=== PATIENT | male | born 1935 | race Caucasian/White ===

== ENCOUNTER 2019-06-16 10:54 | Emergency (ER) | payer OTHER, MEDICARE ==
[2019-06-16 11:31] LABS: Absolute Lymphocytes (CBC) 1.6 K/uL (0.7-4.9); Basophils % 0.4 % (0-1.3); Lymphocytes % 26.3 % (15.3-44.8); MPV 6.4 fL (7.6-11.3); RBC Red Blood Cell Count 4.27 M/uL (4.33-5.43)
[2019-06-16 11:43] LABS: Protime INR 1.16
[2019-06-16 11:50] LABS: ALT/SGPT 15 U/L (12-78); AST/SGOT 18 U/L (15-37); Albumin 3.3 g/dL (3.4-5.0); Alkaline Phosphatase 75 U/L (45-117); BUN Blood Urea Nitrogen 16 mg/dL (7-18); Bicarbonate 26 mmol/L (21-32); Bilirubin Direct 0.1 mg/dL (0-0.2); Bilirubin Total 0.7 mg/dL (0.2-1.0); Glucose Level 116 mg/dL (74-106); NT PRO-BNP 458 pg/mL (<450); Protein, Total 7.2 g/dL (6.4-8.2); Sodium Level 141 mmol/L (136-145); Troponin (Emerg Dept Use Only) < 0.02 ng/mL (0.0-0.045)
[2019-06-16] MEDS ORDERED: ASPIRIN 81 MG CHEWABLE TABLET ONE (12:04)
--- NOTE | 2019-06-16 12:07 | RAD REPORT ---
EXAM DESCRIPTION: Yulia Single View06/16/2019 11:56 am CLINICAL HISTORY: Numbness COMPARISON: None FINDINGS: The lungs appear clear of acute infiltrate. The heart is normal size. Pacemaker leads are in place. IMPRESSION: No acute abnormalities displayed
--- NOTE | 2019-06-16 12:14 | RAD REPORT ---
EXAM DESCRIPTION: CT - Head Brain Wo Cont - 06/16/2019 11:41 am CLINICAL HISTORY: Numbness COMPARISON: None TECHNIQUE: Computed axial tomography of the head was obtained. IV contrast was not requested. All CT scans are performed using dose optimization technique as appropriate and may include automated exposure control or mA/KV adjustment according to patient size. FINDINGS: An intracranial bleed is not seen . The ventricles are normal in caliber. No extra-axial fluid collection is noted. 6 millimeter low-density areas present within the anterior limb of the right internal capsule Fluid within the sinuses/ mastoids is not seen. IMPRESSION: A 6 millimeter low-density area within the anterior limb of the right internal capsule l ikely lacunar infarction. Age is indeterminate. If clinically indicated further evaluation with MRI c ould be obtained
--- NOTE | 2019-06-16 13:02 | ER ---
Nurse's Notes [facility] Name: Prince Coppola Age: 84 yrs Sex: Male : 1935 Arrival Date: 06/16/2019 Time: 10:55 Bed 16 Private MD: Diagnosis: Cerebral infarction;Other lacunar syndromes Presentation: 06/15 11:02 Chief complaint: Patient's son or daughter states: He had a teleconference with Dr. maria a Medina and the doctor said he has possible stroke. He c/o of drooping on L side of face and numbness of L side of the body about 1.5hrs ago. Pt A\T\Ox4. No arm drift. Face appears normal. Symptoms resolved. Coronavirus screen: Patient denies fever greater than 100.4F, cough, shortness of breath, or difficulty breathing. Proceed with normal triage process. Ebola Screen: Patient negative for fever greater than or equal to 101.5 degrees Fahrenheit, and additional compatible Ebola Virus Disease symptoms Patient denies exposure to infectious person. Patient denies travel to an Ebola-affected area in the 21 days before illness onset. No symptoms or risks identified at this time. Initial Sepsis Screen: Does the patient meet any 2 criteria? No. Patient's initial sepsis screen is negative. Does the patient have a suspected source of infection? No. Patient's initial sepsis screen is negative. Risk Assessment: Do you want to hurt yourself or someone else? Patient reports no desire to harm self or others. Onset of symptoms was June 16, 2019 at 09:30. 11:02 Acuity: ROCCO 3 ca1 11:02 Method Of Arrival: Wheelchair ca1 13:37 No acute neurological deficit is noted. The patients blood glucose was checked before bp arriving to the hospital and was found to be normal. Triage Assessment: 11:05 The onset of the patients symptoms was June 16, 2019 at 10:00. General: Appears in no bp apparent distress. comfortable, Behavior is calm, cooperative, appropriate for age. Pain: Denies pain. EENT: No deficits noted. Neuro: Reports weakness. Cardiovascular: No deficits noted. Respiratory: No deficits noted. GI: No signs and/or symptoms were reported involving the gastrointestinal system. : No signs and/or symptoms were reported regarding the genitourinary system. Derm: No signs and/or symptoms reported regarding the dermatologic system. Musculoskeletal: No deficits noted. Stroke Activation: Physician: Stroke Attending; Name: ; Notified At: ; Arrived At: Physician: Chief Stroke Resident; Name: ; Notified At: ; Arrived At: Physician: Stroke Resident; Name: ; Notified At: ; Arrived At: Physician: ED Attending; Name: ; Notified At: ; Arrived At: Physician: ED Resident; Name: ; Notified At: ; Arrived At: 13:37 N/A bp Historical: - Allergies: : No Known Allergies; ca1 - Home Meds: : Tramadol Oral [Active]; propranolol Oral [Active]; ca1 - PMHx: : Hypertension; ca1 - PSHx: 11: None; ca1 - Immunization history:: Adult Immunizations not up to date, Pneumococcal vaccine is not up to date, Flu vaccine is not up to date. - Social history:: Smoking status: Patient denies any tobacco usage or history of. Screenin:07 VAN Screening: Arm Drift: Patient shows no arm weakness. Patient is VAN negative. ca1 11:10 Abuse screen: Denies threats or abuse. Denies injuries from another. Nutritional bp screening: No deficits noted. Tuberculosis screening: No symptoms or risk factors identified. Fall Risk None identified. Assessment: 11:02 VAN Scoring: Arm Drift: Patients demonstrates NO arm weakness. Patient is VAN Negative. bp The patient has not been NPO before screening. The patient is alert, and able to follow commands. The patient does not exhibit slurred or garbled speech. The patient is not exhibiting difficulty speaking. The patient does not exhibit difficulty understanding words. The patient is able to swallow own secretions with no drooling or need for suction. Patient tolerated one teaspoon of water. No drooling, immediate coughing, gurgling, or clearing of the throat was noted. The patient tolerated 90mL of water. No drooling, immediate coughing, gurgling, or clearing of the throat was noted. The patient passed the bedside swallow screening. Oral medications may be given as ordered. Contact Physician for further diet orders. Provider notified of bedside swallow screening results: Estefania MATTA T-PA (Activase) Screening: Contraindications: Rapidly improving condition or minor deficit: Yes. General: SEE TRIAGE NOTE. 12:00 Reassessment:. Neuro: Level of Consciousness is awake, alert, obeys commands, Oriented bp to person, place, time, situation, Appropriate for age Moves all extremities. Full function Speech is normal, Pupils are PERRLA. 12:47 Reassessment: MRI PENDING. NIH SS REMAINS 0. bp 12:58 Reassessment: MRI CANCELLED, PT HAS DEFIBRILLATOR. bp 13:39 Reassessment: PT REFUSING ADMIT. PT TO BE D/C. bp 14:09 Reassessment: PT D/C HOME VIA W/C WITH FAMILY, DX WITH LACUNAR INFARCT. bp Vital Signs: 11:02 BP 157 / 87; Pulse 72; Resp 17 S; Temp 98.4(O); Pulse Ox 98% on R/A; Weight 84.82 kg ca1 (R); Height 6 ft. (182.88 cm) (R); Pain 0/10; 12:42 BP 128 / 82; Pulse 63; Resp 16; Pulse Ox 93% ; bp 13:39 BP 165 / 89; Pulse 60; Resp 17; Temp 98; Pulse Ox 97% ; bp 14:09 BP 126 / 85; Pulse 87; Resp 16; Temp 98; Pulse Ox 96% ; bp 11:02 Body Mass Index 25.36 (84.82 kg, 182.88 cm) ca1 NIH Stroke Scale Scores: 11:02 NIHSS Score: 0 bp 11:20 NIHSS Score: 1 snw ED Course: 10:55 Patient arrived in ED. ag5 10:58 John Clark, RN is Primary Nurse. bp 11:05 Triage completed. ca1 11:06 Estefania Govea FNP-C is PHCP. snw 11:06 Sameer Pollock MD is Attending Physician. snw 11:07 Arm band placed on right wrist. ca1 11:10 Patient has correct armband on for positive identification. Bed in low position. Call bp light in reach. Side rails up X2. 11:31 Initial lab(s) drawn, by me, sent to lab. Inserted saline lock: 20 gauge in left em1 forearm, using aseptic technique. Blood collected. 11:42 CT Head Brain wo Cont In Process Unspecified. EDMS 11:47 EKG done, by ED staff, reviewed by Estefania WHITTEN. em1 12:06 XRAY Chest (1 view) In Process Unspecified. EDMS 12:58 Moe Medina MD is Hospitalizing Provider. snw 13:38 No provider procedures requiring assistance completed. IV discontinued, intact, bp bleeding controlled, No redness/swelling at site. Pressure dressing applied. 13:45 Primo Dooley MD is Referral Physician. snw 13:[address] medina and dr dooley that pt does not want to be admitted. bd Administered Medications: 11:50 Drug: Aspirin Chewable Tablet 324 mg Route: PO; bp 13:41 Follow up: Response: No adverse reaction bp 12:45 Drug: foLIC Acid 1 mg Route: IVPB; Site: left forearm; bp 13:41 Follow up: IV Status: Completed infusion; IV Intake: 100ml bp Intake: 13:41 IV: 100ml; Total: 100ml. bp Outcome: 12:59 Decision to Hospitalize by Provider. snw 13:40 Discharge ordered by MD. snw 14:09 Discharged to home via wheelchair. bp 14:09 Condition: stable 14:09 Discharge instructions given to patient, Instructed on discharge instructions, follow up and referral plans. medication usage, Demonstrated understanding of instructions, follow-up care, medications, Prescriptions given X 3. 14:11 Patient left the ED. bp NIH Stroke Scale - NIH Stroke Score Date: 06/16/2019 Time: 11:02 Total Score = 0 1a. Level of Consciousness (LOC) - 0(Alert) 1b. Level of Consciousness (LOC) (Year \T\ Age) - 0(Both) 1c. LOC Commands (Open \T\ Closes Eyes/Operation Manager) - 0(Both) 2. Best Gaze (Lateral Gaze Paresis) - 0(Normal) 3. Visual Field Loss - 0(No visual loss) 4. Facial Palsy - 0(Normal) 5a. Left Arm: Motor (10-second hold) - 0(No drift) 5b. Right Arm: Motor (10-second hold) - 0(No drift) 6a. Left Leg: Motor (5-second hold - always test supine) - 0(No drift) 6b. Right Leg: Motor (5-second hold - always test supine) - 0(No drift) 7. Limb Ataxia (finger/nose \T\ heel/garcia - test with eyes open) - 0(Absent) 8. Sensory Loss (pinprick arms/legs/face) - 0(Normal) 9. Best Language: Aphasia (description/naming/reading) - 0(No aphasia) 10. Dysarthria (speech clarity - read or repeat words) - 0(Normal) 11. Extinction and Inattention (visual/tactile/auditory/spatial/personal) - 0(No abnormality) Initials: bp NIH Stroke Scale - NIH Stroke Score Date: 06/16/2019 Time: 11:20 Total Score = 1 1a. Level of Consciousness (LOC) - 0(Alert) 1b. Level of Consciousness (LOC) (Year \T\ Age) - 0(Both) 1c. LOC Commands (Open \T\ Closes Eyes/Operation Manager) - 0(Both) 2. Best Gaze (Lateral Gaze Paresis) - 0(Normal) 3. Visual Field Loss - 0(No visual loss) 4. Facial Palsy - 0(Normal) 5a. Left Arm: Motor (10-second hold) - 0(No drift) 5b. Right Arm: Motor (10-second hold) - 0(No drift) 6a. Left Leg: Motor (5-second hold - always test supine) - 0(No drift) 6b. Right Leg: Motor (5-second hold - always test supine) - 0(No drift) 7. Limb Ataxia (finger/nose \T\ heel/garcia - test with eyes open) - 0(Absent) 8. Sensory Loss (pinprick arms/legs/face) - 1(Mild to moderate loss) 9. Best Language: Aphasia (description/naming/reading) - 0(No aphasia) 10. Dysarthria (speech clarity - read or repeat words) - 0(Normal) 11. Extinction and Inattention (visual/tactile/auditory/spatial/personal) - 0(No abnormality) Initials: snw Signatures: Dispatcher [employer] Lisa Christiansen Shelly, TALENT MANAGEMENT MANAGER-C TALENT MANAGEMENT MANAGER-Sandro Hurd em1 John Clark RN RN bp Acob, Cheryl, RN RN ca1 Gaskin, Ajare ag5 Corrections: (The following items were deleted from the chart) 12:45 12:42 Pulse 63bpm; Resp 16bpm; Pulse Ox 93%; bp bp
--- NOTE | 2019-06-16 13:02 | EDPHYS ---
Physician Documentation [facility] Name: Prince Coppola Age: 84 yrs Sex: Male : 1935 Arrival Date: 06/16/2019 Time: 10:55 Bed 16 Private MD: ED Physician Sameer Pollock HPI: 06/15 11:23 This 84 yrs old Male presents to ER via Wheelchair with complaints of S/S of snw Possible Stroke. 11:23 The patient's problem is reported as numbness. Onset: The symptoms/episode snw began/occurred suddenly, noted upon awakening, pt states the numbness remains slightly but is better.. Duration: This was a single incident. Associated signs and symptoms: The patient has no apparent associated signs or symptoms. Severity of symptoms: At their worst the symptoms were mild. Patient's baseline: Neuro: alert and fully oriented, Motor: no deficits, Ambulation: walks without assistance, Speech: normal, The patient has a previous history of taking tramadol and propranolol. The patient has been recently seen by a physician: the patient's primary care provider, Dr. Medina earlier today, with similar presenting complaints, and was sent to the [facility] Emergency Department for further evaluation. Historical: - Allergies: 11:07 No Known Allergies; ca1 - Home Meds: 11:07 Tramadol Oral [Active]; propranolol Oral [Active]; ca1 - PMHx: 11:07 Hypertension; ca1 - PSHx: 11:07 None; ca1 - Immunization history:: Adult Immunizations not up to date, Pneumococcal vaccine is not up to date, Flu vaccine is not up to date. - Social history:: Smoking status: Patient denies any tobacco usage or history of. ROS: 11:22 Constitutional: Negative for fever, chills, and weight loss, Eyes: Negative for injury, snw pain, redness, and discharge, ENT: Negative for injury, pain, and discharge, Neck: Negative for injury, pain, and swelling, Cardiovascular: Negative for chest pain, palpitations, and edema, Respiratory: Negative for shortness of breath, cough, wheezing, and pleuritic chest pain, Abdomen/GI: Negative for abdominal pain, nausea, vomiting, diarrhea, and constipation, Back: Negative for injury and pain, : Negative for injury, bleeding, discharge, and swelling, MS/Extremity: Negative for injury and deformity, Skin: Negative for injury, rash, and discoloration, Psych: Negative for depression, anxiety, suicide ideation, homicidal ideation, and hallucinations. 11:22 Neuro: Positive for numbness. Exam: 11:20 Constitutional: This is a well developed, well nourished patient who is awake, alert, snw and in no acute distress. Head/Face: Normocephalic, atraumatic. Eyes: Pupils equal round and reactive to light, extra-ocular motions intact. Lids and lashes normal. Conjunctiva and sclera are non-icteric and not injected. Cornea within normal limits. Periorbital areas with no swelling, redness, or edema. ENT: Nares patent. No nasal discharge, no septal abnormalities noted. Tympanic membranes are normal and external auditory canals are clear. Oropharynx with no redness, swelling, or masses, exudates, or evidence of obstruction, uvula midline. Mucous membranes moist. Neck: Trachea midline, no thyromegaly or masses palpated, and no cervical lymphadenopathy. Supple, full range of motion without nuchal rigidity, or vertebral point tenderness. No Meningismus. Chest/axilla: Normal chest wall appearance and motion. Nontender with no deformity. No lesions are appreciated. Cardiovascular: Regular rate and rhythm with a normal S1 and S2. No gallops, murmurs, or rubs. Normal PMI, no JVD. No pulse deficits. Respiratory: Lungs have equal breath sounds bilaterally, clear to auscultation and percussion. No rales, rhonchi or wheezes noted. No increased work of breathing, no retractions or nasal flaring. Abdomen/GI: Soft, non-tender, with normal bowel sounds. No distension or tympany. No guarding or rebound. No evidence of tenderness throughout. Back: No spinal tenderness. No costovertebral tenderness. Full range of motion. Skin: Warm, dry with normal turgor. Normal color with no rashes, no lesions, and no evidence of cellulitis. MS/ Extremity: Pulses equal, no cyanosis. Neurovascular intact. Full, normal range of motion. Psych: Awake, alert, with orientation to person, place and time. Behavior, mood, and affect are within normal limits. 11:20 Neuro: Motor: is normal, Sensation: numbness, that is mild, of the left side of forehead, left eye, left muslim, left side of the nose, left zygomatic area, left cheek and left mandible and left arm. 13:00 Radiologist reports: Lacunar infarct snw Vital Signs: 11:02 BP 157 / 87; Pulse 72; Resp 17 S; Temp 98.4(O); Pulse Ox 98% on R/A; Weight 84.82 kg ca1 (R); Height 6 ft. (182.88 cm) (R); Pain 0/10; 12:42 BP 128 / 82; Pulse 63; Resp 16; Pulse Ox 93% ; bp 13:39 BP 165 / 89; Pulse 60; Resp 17; Temp 98; Pulse Ox 97% ; bp 14:09 BP 126 / 85; Pulse 87; Resp 16; Temp 98; Pulse Ox 96% ; bp 11:02 Body Mass Index 25.36 (84.82 kg, 182.88 cm) ca1 NIH Stroke Scale Scores: 11:02 NIHSS Score: 0 bp 11:20 NIHSS Score: 1 snw MDM: 11:14 Data reviewed: vital signs, nurses notes. Data interpreted: Pulse oximetry: on room air snw is 98 %. Interpretation: normal. Counseling: I had a detailed discussion with the patient and/or guardian regarding: the historical points, exam findings, and any diagnostic results supporting the discharge/admit diagnosis, the presence of at least one elevated blood pressure reading (>120/80) during this emergency department visit, lab results, radiology results, the need for further work-up and treatment in the hospital. Physician consultation: Moe Medina MD was called at 11:16, pt seen by Dr. Medina on teleconference, sent to ED for stroke eval.. 11:30 Patient medically screened. snw 12:37 Counseling: I had a detailed discussion with the patient and/or guardian regarding: the snw historical points, exam findings, and any diagnostic results supporting the discharge/admit diagnosis. Physician consultation: Primo Ramirez MD was called at 12:38, was contacted at 12:38, regarding consult, patient's condition, would like further tests performed, Lipid panel, would like medications started, ASA, folic acid, statin. 12:58 ED course: MRI cancelled as pt has a defibrillator. snw 13:00 ED course: Pt not in window for thrombolytics as he awoke with s/s, presented to ED at snw 1100, unknown onset. 13:39 Refusal of service: The patient/guardian displays adequate decision making capability sn and despite a detailed discussion of alternatives, benefits, risks, and consequences refuses: Admission to the hospital for further work-up and treatment, Pt refuses admission. 06/15 11:13 Order name: Basic Metabolic Panel; Complete Time: 11:54 [facility] 06/15 11:13 Order name: CBC with Diff w 06/15 11:13 Order name: LFT's; Complete Time: 11:54 [facility] 06/15 11:13 Order name: Magnesium; Complete Time: :54 [facility] 06/15 11:13 Order name: NT PRO-BNP; Complete Time: : 06/15 11:13 Order name: PT-INR; Complete Time: 11:54 [facility] 06/15 11:13 Order name: CT Head Brain wo Cont; Complete Time: 12:35 [facility] 06/15 11:13 Order name: Troponin (emerg Dept Use Only); Complete Time: 11:54 06/15 11:13 Order name: XRAY Chest (1 view); Complete Time: 12:35 [facility] 06/15 12:37 Order name: Lipid Profile [facility] 06/15 13:16 Order name: Lipid Profile [facility] 06/15 11:13 Order name: FSBS; Complete Time: 11:49 06/15 11:13 Order name: EKG; Complete Time: 11:15 [facility] 06/15 11:13 Order name: Cardiac monitoring; Complete Time: 11:47 [facility] 06/15 11:13 Order name: EKG - Nurse/Tech; Complete Time: 11:47 [facility] 06/15 11:13 Order name: IV Saline Lock; Complete Time: 11: [facility] 06/15 11:13 Order name: Labs collected and sent; Complete Time: : 06/15 11:13 Order name: O2 Per Protocol; Complete Time: 11:49 06/15 11:13 Order name: O2 Sat Monitoring; Complete Time: 11:49 [facility] 06/15 14:04 Order name: CONS Physician Consult [facility] Administered Medications: 11:50 Drug: Aspirin Chewable Tablet 324 mg Route: PO; bp 13:41 Follow up: Response: No adverse reaction bp 12:45 Drug: foLIC Acid 1 mg Route: IVPB; Site: left forearm; bp 13:41 Follow up: IV Status: Completed infusion; IV Intake: 100ml bp Disposition: 14:38 Co-signature as Attending Physician, Sameer Pollock MD. rn Disposition: 06/16/19 13:40 Discharged to Home. Impression: Cerebral infarction, Other lacunar syndromes. - Condition is Stable. - Discharge Instructions: Stroke Prevention, Ischemic Stroke Treated Without Warfarin, [id number]. - Prescriptions for Aspirin Low- Strength - take 81 milligram by ORAL route once daily; 1 bottle. Folic Acid 1 mg Oral Tablet - take 1 tablet by ORAL route once daily; 30 tablet. Lipitor 10 mg Oral Tablet - take 1 tablet by ORAL route once daily; 30 tablet. - Medication Reconciliation Form, Thank You Letter, Antibiotic Education, Prescription Opioid Use form. - Follow up: Emergency Department; When: As needed; Reason: Worsening of condition. Follow up: Private Physician; When: 2 - 3 days; Reason: Recheck today's complaints, Continuance of care, Re-evaluation by your physician. Follow up: Primo Ramirez MD; When: 2 - 3 days; Reason: Recheck today's complaints, Continuance of care. NIH Stroke Scale - NIH Stroke Score Date: 06/16/2019 Time: 11:02 Total Score = 0 1a. Level of Consciousness (LOC) - 0(Alert) 1b. Level of Consciousness (LOC) (Year \T\ Age) - 0(Both) 1c. LOC Commands (Open \T\ Closes Eyes/Intensive Care Anaesthetist) - 0(Both) 2. Best Gaze (Lateral Gaze Paresis) - 0(Normal) 3. Visual Field Loss - 0(No visual loss) 4. Facial Palsy - 0(Normal) 5a. Left Arm: Motor (10-second hold) - 0(No drift) 5b. Right Arm: Motor (10-second hold) - 0(No drift) 6a. Left Leg: Motor (5-second hold - always test supine) - 0(No drift) 6b. Right Leg: Motor (5-second hold - always test supine) - 0(No drift) 7. Limb Ataxia (finger/nose \T\ heel/garcia - test with eyes open) - 0(Absent) 8. Sensory Loss (pinprick arms/legs/face) - 0(Normal) 9. Best Language: Aphasia (description/naming/reading) - 0(No aphasia) 10. Dysarthria (speech clarity - read or repeat words) - 0(Normal) 11. Extinction and Inattention (visual/tactile/auditory/spatial/personal) - 0(No abnormality) Initials: bp NIH Stroke Scale - NIH Stroke Score Date: 06/16/2019 Time: 11:20 Total Score = 1 1a. Level of Consciousness (LOC) - 0(Alert) 1b. Level of Consciousness (LOC) (Year \T\ Age) - 0(Both) 1c. LOC Commands (Open \T\ Closes Eyes/Intensive Care Anaesthetist) - 0(Both) 2. Best Gaze (Lateral Gaze Paresis) - 0(Normal) 3. Visual Field Loss - 0(No visual loss) 4. Facial Palsy - 0(Normal) 5a. Left Arm: Motor (10-second hold) - 0(No drift) 5b. Right Arm: Motor (10-second hold) - 0(No drift) 6a. Left Leg: Motor (5-second hold - always test supine) - 0(No drift) 6b. Right Leg: Motor (5-second hold - always test supine) - 0(No drift) 7. Limb Ataxia (finger/nose \T\ heel/garcia - test with eyes open) - 0(Absent) 8. Sensory Loss (pinprick arms/legs/face) - 1(Mild to moderate loss) 9. Best Language: Aphasia (description/naming/reading) - 0(No aphasia) 10. Dysarthria (speech clarity - read or repeat words) - 0(Normal) 11. Extinction and Inattention (visual/tactile/auditory/spatial/personal) - 0(No abnormality) Initials: snw Signatures: Dispatcher [employer] Tia Genao RN RN Estefania Olson, FILTER TIP CATCHER-C FILTER TIP CATCHER-Csnw Sameer Pollock MD MD rn Peltier, Brian, RN RN bp AcobYanira RN RN ca1 Corrections: (The following items were deleted from the chart) 13:28 12:59 Hospitalization Ordered by Moe Medina MD for Observation. Preliminary dw diagnosis is Other lacunar syndromes. Bed requested for Telemetry/MedSurg (observation). Status is Observation. Condition is Stable. Problem is new. Symptoms are unchanged. snw 13:39 13:28 06/16/2019 12:59 Hospitalization Ordered by Moe Medina MD for snw Observation. Preliminary diagnosis is Other lacunar syndromes. Bed requested for Telemetry/MedSurg (observation). Status is Observation. Condition is Stable. Problem is new. Symptoms are unchanged. dw 13:45 13:40 06/16/2019 13:40 Discharged to Home. Impression: Cerebral infarction; snw Other lacunar syndromes. Condition is Stable. Forms are Medication Reconciliation Form, Thank You Letter, Antibiotic Education, Prescription Opioid Use. Follow up: Emergency Department; When: As needed; Reason: Worsening of condition. Follow up: Private Physician; When: 2 - 3 days; Reason: Recheck today's complaints, Continuance of care, Re-evaluation by your physician. snw 14:11 13:45 06/16/2019 13:40 Discharged to Home. Impression: Cerebral infarction; bp Other lacunar syndromes. Condition is Stable. Discharge Instructions: Stroke Prevention, Ischemic Stroke Treated Without Warfarin, [id number]. Prescriptions for Aspirin Low-Strength - take 81 milligram by ORAL route once daily; 1 bottle, Folic Acid 1 mg Oral Tablet - take 1 tablet by ORAL route once daily; 30 tablet, Lipitor 10 mg Oral Tablet - take 1 tablet by ORAL route once daily; 30 tablet. and Forms are Medication Reconciliation Form, Thank You Letter, Antibiotic Education, Prescription Opioid Use. Follow up: Emergency Department; When: As needed; Reason: Worsening of condition. Follow up: Private Physician; When: 2 - 3 days; Reason: Recheck today's complaints, Continuance of care, Re-evaluation by your physician. Follow up: Primo Ramirez; When: 2 - 3 days; Reason: Recheck today's complaints, Continuance of care. snw
[2019-06-16] MEDS ORDERED: NA CHLORIDE 0.9% 100 ML IV ONE (13:20)
[2019-06-16] MEDS ORDERED: FOLIC ACID 5 MG/ML VIAL ONE (13:21)
[2019-06-16 14:23] VITALS: TEMP 98
[2019-06-16 14:24] VITALS: BP 126/85; O2SAT 96
--- NOTE | 2019-06-16 20:43 | P.SSS ---
Patient History Date of Service: 06/16/19 Reason for admission: STROKE History of Present Illness: I SAW HIM ON TELEMEDICINE TODAY. I SUSPECTED HE WAS HAVING STROKE ON L SIDE OF FACE AND ARM WITH PARESTHESIA. INITIALLY HE DID NOT WANT TO GOT [facility]. AFTER DAUGHTER CONVINCED HE CAME. HE HAS A FIB FOR LONG DURATION. HE DOES NOT WANT ANTICOAGULATION. HE HAS LACUNAR BASAL GANGLIA INFARCT. HE DID NOT WANT TO STAY IN HOSPITAL AND LEFT HOME FROM ER ITSELF. I TALKED TO DAUGHTER AND MADE SURE HE WILL AT LEAST TAKE ASPRIN 81 MG DAILY. Physical Examination - Vital Signs Temperature: 98 F Blood Pressure: 126/85 Pulse: 87 Respirations: 16 - Studies Laboratory Data (last 24 hrs) 06/16/19 11:27: Triglycerides 164 H, Cholesterol 214 H, HDL Cholesterol 38 L, Cholesterol/HDL Ratio 5.63 06/16/19 11:27: PT 13.6 H, INR 1.16 06/16/19 11:27: WBC 6.1, Hgb 13.7, Hct 40.0, Plt Count 205 06/16/19 11:27: Sodium 141, Potassium 4.0, BUN 16, Creatinine 0.90, Glucose 116 H, Magnesium 2.0, Total Bilirubin 0.7, AST 18, ALT 15, Alkaline Phosphatase 75 - Disposition Disposition: ROUTINE DISCHARGE
--- NOTE | 2019-06-17 10:05 | EKG ---
Test Date: 2019-06-16 Test Time: 11:44:40 Wind Technician: BELEM MEASUREMENT RESULTS: Intervals: Rate: 66 [place]: 196 QRSD: 124 QT: 400 QTc: 419 [place]: P: 52 [place]: 196 QRS: -69 T: 77 INTERPRETIVE STATEMENTS: Normal sinus rhythm Left axis deviation RSR' or QR pattern in V1 suggests right ventricular conduction delay Anteroseptal infarct, age undetermined Abnormal ECG No previous ECG available for comparison Electronically Signed On 06-17-19 10:03:01 CDT by Eliezer Pugh
== END 2019-06-16 14:11 | disposition home or self-care (01) ==
LOC: ER 10:54 → ERHOLD 13:07 → UNDOADMIN 13:07
DX: I63.9 Cerebral infarction, unspecified (principal); I10 Essential (primary) hypertension; R29.701 NIHSS score 1; G46.7 Other lacunar syndromes; I48.91 Unspecified atrial fibrillation
CPT/HCPCS: 36415; 70450; 71045; 80048; 80061; 80076; 83735; 83880; 84484; 85025; 85610; 93005; 96365; 99284

== ENCOUNTER 2021-05-24 12:04 | Day surgery (SDC) | payer OTHER, MEDICARE ==
--- NOTE | 2021-05-22 08:48 | RAD REPORT ---
EXAM DESCRIPTION: RAD - Chest Pa And Lat (2 Views) - 05/22/2021 8:43 am CLINICAL HISTORY: pre op pending heart cath COMPARISON: Thoracic Spine W/o Cont dated 2Chest Single View dated 06/16/2019 FINDINGS: Lines: Pacemaker/defibrillator. Lungs: No evidence of edema or pneumonia. Pleural: No significant pleural effusions or pneumothorax. Cardiac: The heart size is within normal limits. Bones: No acute fractures. Other: IMPRESSION: No acute cardiopulmonary disease.
--- NOTE | 2021-05-22 09:09 | EKG ---
Test Date: 2021-05-22 Test Time: 08:24:53 Co Op: DASIA MEASUREMENT RESULTS: Intervals: Rate: 62 [place]: 202 QRSD: 128 QT: 398 QTc: 403 [place]: P: 65 [place]: 202 QRS: -65 T: 174 INTERPRETIVE STATEMENTS: Normal sinus rhythm Left axis deviation Nonspecific intraventricular block Septal infarct, age undetermined T wave abnormality, consider anterolateral ischemia Abnormal ECG Compared to ECG 06/16/2019 11:44:40 T-wave abnormality now present Possible ischemia now present Myocardial infarct finding still present Electronically Signed On 05-22-21 09:08:54 HAND SILVERING SUPERVISOR by Eliezer Pugh
[2021-05-22 09:16] LABS: Absolute Lymphocytes (CBC) 1.8 K/uL (0.7-4.9); Hematocrit 37.1 % (39.6-49.0); Lymphocytes % 29.5 % (15.3-44.8); MPV 6.5 fL (7.6-11.3); RBC Red Blood Cell Count 3.95 M/uL (4.33-5.43)
[2021-05-22 09:21] LABS: Protime INR 1.51
[2021-05-22 09:43] LABS: Potassium 4.1 mmol/L (3.5-5.1)
[2021-05-24] MEDS ORDERED: NA CHLORIDE 0.9% 500 ML ONE (12:41)
[2021-05-24 13:05] VITALS: TEMP 97.1; O2SAT 98
[2021-05-24] MEDS ORDERED: HEPARIN 5000 UNIT/ML 1 ML VIAL ONE (14:44)
[2021-05-24] MEDS ORDERED: FENTANYL CITR 100 MCG/2 ML ONE (14:44)
[2021-05-24] MEDS ORDERED: VERAPAMIL HCL 10 MG/4 ML VIAL IV ONE (14:45)
[2021-05-24] MEDS ORDERED: ASPIRIN 325 MG TAB ONE (14:45)
[2021-05-24] MEDS ORDERED: CLOPIDOGREL 75 MG TABLET ONE (14:45)
[2021-05-24] MEDS ORDERED: MIDAZOLAM HCL 2 MG/2 ML INJ ONE (14:45)
[2021-05-24] MEDS ORDERED: TICAGRELOR 90 MG TABLET PO ONE (14:46)
[2021-05-24] MEDS ORDERED: HEPARIN 10,000 UNIT/10 ML VIAL IV ONE (14:46)
[2021-05-24] MEDS ORDERED: ATROPINE SULF 1 MG/10 ML SYR IV ONE (14:46)
[2021-05-24] MEDS ORDERED: HEPA 1000U/500MLS 2,000 UNIT/1,000 ML BAG IV ONE (14:52)
[2021-05-24] MEDS ORDERED: HEPA 1000U/500MLS 1,000 UNIT/500 ML BAG IV ONE (15:46)
[2021-05-24 19:10] VITALS: BP 166/88
--- NOTE | 2021-05-25 03:21 | OP ---
Date of Procedure: 05/24/2021 Surgeon: NILAM TONY Procedure Performed: Selective coronary angiogram. Indication: Abnormal stress test. Access: Right radial artery 6-Somali closed with TR band. Complications: None. Bleeding: Less than 10 mL. Anesthesia: Total sedation time was 45 minutes. Description Of Procedure: After risks, benefits, and alternatives were explained, the patient agreed to proceed and signed informed consent. The patient was brought into the cardiac catheterization la boratory, prepped and draped in usual sterile fashion. Then, we accessed right radial artery using p iatric micropuncture kit and placed a 6-Somali slender sheath. Fentanyl, Versed were given in incr emental doses to achieve adequate moderate sedation. Then, we took a 5-Somali [place] 4.0 catheter int o the aortic root, engaged the left main and right coronary artery, took standard views. Intervention Details: We gave systemic heparin to assure ACT level above 250, loaded with 180 Brilin ta and 325 of aspirin. We then took a 6-Somali XB3.5 left guide into the aortic root, engaged left m ain, took short run-through wire into the LAD crossing the area of stenosis. The area was pre-dilate d and then followed by a stent placement of 3.0 x 20 mm Synergy drug-eluting stent and the proximal p art was post dilated using a 3.5 x 12 mm NC balloon and results were satisfactory. I removed the tamara de and the wire and sheath, placed TR band with good hemostasis. Findings: 1.Left main is large with luminal irregularities. 2.LAD proximal, 95% to 99% stenosis, status post successful percutaneous coronary intervention as ab ove, diagonal 1 branch has a focal proximal 70% stenosis. Then, the LAD has mild luminal irregularit ies. 3.Left circumflex. It is the largest artery of his heart, supplies the apex, inferior wall, and the lateral wall. There is a proximal 30% and mid 70% stenosis and then it gives collaterals to the PDA . 4.RCA small non dominant and has mid section that is 99%, but inferior wall is completely filled by the left circumflex. Conclusions: Severe multivessel disease, as outlined above, status post successful PCI of the LAD. Plan: 1.Patient to be continued on Brilinta, aspirin, and high-dose statin. 2.Staged FFR guided PCI of the left circumflex. If FFR is positive, we will stent it and also we wi ll plan for PCI of the RCA. I believe it could hold a 2.5 mm stent and there is still a channel to a ccess. Follow up with me in the office in 1 week. /PAULINO Voice ID: [id number] Report ID: [id number]
== END 2021-05-24 19:26 | disposition home or self-care (01) ==
LOC: CCL 12:04
PROVIDERS: ATTEND Internal Medicine
DX: I25.10 Atherosclerotic heart disease of native coronary artery without angina pectoris (principal); I11.0 Hypertensive heart disease with heart failure; I50.9 Heart failure, unspecified; E78.5 Hyperlipidemia, unspecified; Z95.810 Presence of automatic (implantable) cardiac defibrillator; Z20.822 Contact with and (suspected) exposure to COVID-19; Z82.49 Family history of ischemic heart disease and other diseases of the circulatory system
CPT/HCPCS: 93005; 85025; 80048; 36415; 85610; 85347 ×2; 85730; 71046; 93454; U0003; C1893; C1725; C9600; J1644 ×3; J2250; J3010; J7040

== ENCOUNTER 2021-07-26 11:00 | Day surgery (SDC) | payer OTHER, MEDICARE ==
[2021-07-24 09:44] LABS: Absolute Lymphocytes (CBC) 1.2 K/uL (0.7-4.9); Hematocrit 35.2 % (39.6-49.0); Lymphocytes % 22.8 % (15.3-44.8); MPV 5.8 fL (7.6-11.3); RBC Red Blood Cell Count 3.76 M/uL (4.33-5.43)
[2021-07-24 09:47] LABS: Protime INR 1.15
[2021-07-24 09:56] LABS: Potassium 4.1 mmol/L (3.5-5.1)
--- NOTE | 2021-07-24 10:49 | EKG ---
Test Date: 2021-07-24 Test Time: 08:23:10 Developmental Psychologist: MAYURI MEASUREMENT RESULTS: Intervals: Rate: 65 [place]: 204 QRSD: 124 QT: 406 QTc: 422 [place]: P: 48 [place]: 204 QRS: -65 T: 97 INTERPRETIVE STATEMENTS: Normal sinus rhythm Left axis deviation RSR' or QR pattern in V1 suggests right ventricular conduction delay Septal infarct, age undetermined Abnormal ECG Compared to ECG 05/22/2021 08:24:53 RSR' in V1 or V2 now present T-wave abnormality no longer present Possible ischemia no longer present Myocardial infarct finding still present Electronically Signed On 07-24-21 10:49:07 CDT by Eliezer Pugh
[~2021-07-26 11:00] MED LIST: FENTANYL CITR 100 MCG/2 ML ONE; HEPA 1000U/500MLS 2,000 UNIT/1,000 ML BAG IV ONE
[2021-07-26] MEDS ORDERED: MIDAZOLAM HCL 2 MG/2 ML INJ ONE (11:01)
[2021-07-26] MEDS ORDERED: HEPARIN 5000 UNIT/ML 1 ML VIAL ONE (11:01)
[2021-07-26] MEDS ORDERED: HEPARIN 10,000 UNIT/10 ML VIAL IV ONE (11:01)
[2021-07-26] MEDS ORDERED: LIDOCAINE 1% MPF 30 ML VIAL ONE (11:01)
[2021-07-26] MEDS ORDERED: ATROPINE SULF 1 MG/10 ML SYR IV ONE (11:02)
[2021-07-26] MEDS ORDERED: VERAPAMIL HCL 10 MG/4 ML VIAL IV ONE (11:04)
[2021-07-26] MEDS ORDERED: NITROGLYCERIN 100 MCG/ML SYR (for cath lab use only) IV ONE (11:08)
[2021-07-26] MEDS ORDERED: NITROGLYCERIN/D5W 25 MG/250 ML BTL IV ONE (11:09)
[2021-07-26] MEDS ORDERED: NA CHLORIDE 0.9% 500 ML ONE (11:15)
[2021-07-26] MEDS ORDERED: TICAGRELOR 90 MG TABLET PO ONE (11:20)
[2021-07-26] MEDS ORDERED: ASPIRIN 325 MG TAB ONE (11:20)
[2021-07-26] MEDS ORDERED: CLOPIDOGREL 75 MG TABLET ONE (11:20)
[2021-07-26] MEDS ORDERED: REGADENOSON 0.4 MG/5 ML SYR IV ONE (11:59)
[2021-07-26] MEDS ORDERED: HEPA 1000U/500MLS 1,000 UNIT/500 ML BAG IV ONE (12:42)
[2021-07-26 14:51] VITALS: BP 143/68; O2SAT 98
--- NOTE | 2021-07-27 01:48 | OP ---
Date of Procedure: 07/26/2021 Surgeon: NILAM TONY Procedure Performed: 1.Selective coronary angiogram. 2.Percutaneous coronary intervention of critical mid right coronary artery stenosis, 99% stenosis. I used a 2.75 x 16 mm distally and then overlapped to the mid and proximal right coronary artery usin g 3.0 x 60 mm Synergy drug-eluting stent with excellent results. 3.FFR of the mid left circumflex to moderate stenosis that was negative at 0.95. Complications: None. Bleeding: Less than 10 mL. Indication: Known severe coronary artery disease with angina. Sedation: Total sedation time was 45 minutes, used fentanyl and Versed. Access: Left femoral artery closed with 6-[place]oc[place] Angio-Seal. Complications: None. Description Of Procedure: After risks, benefits, alternatives were explained, the patient agreed to the procedure and signed informed consent. The patient was brought into the cardiac catheterization laboratory, prepped and draped in usual sterile fashion. Then, I accessed left femoral artery using micropuncture kit, ultrasound guidance of fluoroscopy and placed 6-[place]occan [place] sheath and then to ok 6-Moroccan XB 3.5 guide into the aortic root, engaged left main, took standard views, and then I gav e systemic heparin to assure us the level above 250 and then took the FFR wire into the aortic root. The pressures were equalized and then advanced the wire into the left main and left circ passing the area of stenosis and FFR was done and the value was 0.95 and significant point bagging the wire, the re was no drift, then removed the XB guide and exchanged for 6-[place]oc[place] JR4 guide, engaged the RCA and then sent a run-through wire into the RCA, passing the area of stenosis with difficulties, however, h e is able to pass the stenosis and then lesion was pre-dilated and expanded very well. Then, I took 2.75 x 60 mm Synergy drug-eluting stent, placed it distally, and took 3 0 x 60 mm Synergy drug-elutin g stent and placed it proximally with excellent results. The vessel was large and codominant circula tion. Final angiogram was satisfactory, removed the catheter and the guide and removed the sheath an d placed a 6-[place]oc[place] Angio-Seal with good hemostasis. Findings: 1.Left main is large and normal. 2.LAD, patent proximal stent and diagonal 1 branch has proximal 70% diffuse stenosis, but it is a ve ry small vessel. 3.Left circumflex is a very large and codominant mid 60% to 70% with negative FFR of 0.95. 4.RCA, it is a good codominant moderate sized vessel with 99% longer occlusion in the midportion, st atus post successful PCI as above. Conclusions: 1.Severe RCA stenosis, status post successful PCI as above. 2.Moderate mid left circumflex stenosis that was negative by FFR of 0.95. 3.Patent LAD stent. Plan: Continue Brilinta, aspirin, and high-dose statin. Follow up with me in the office in a month. SR/MODL Voice ID: [id number] Report ID: [id number]
== END 2021-07-26 15:13 | disposition home or self-care (01) ==
LOC: CCL 11:00
PROVIDERS: ATTEND Internal Medicine
DX: I25.119 Atherosclerotic heart disease of native coronary artery with unspecified angina pectoris (principal); I48.91 Unspecified atrial fibrillation; I10 Essential (primary) hypertension; E78.5 Hyperlipidemia, unspecified; Z95.5 Presence of coronary angioplasty implant and graft; Z79.01 Long term (current) use of anticoagulants; Z20.822 Contact with and (suspected) exposure to COVID-19; Z82.49 Family history of ischemic heart disease and other diseases of the circulatory system
CPT/HCPCS: 93005; 85025; 80048; 36415; 85610; 85347 ×2; 85730; 93454; 93571; U0003; C1893; C1760; Q9967; G0269; C1725; C9600; J1644 ×3; J2250; J3010; J2785; J7040; C1769; 92928